=== PATIENT | male | born 1985 | race Two or more races ===

== ENCOUNTER 2019-07-02 14:03 | Inpatient (IN) | payer OTHER ==
[2019-07-02 18:19] VITALS: BMI 29.0
--- NOTE | 2019-07-02 19:36 | HP ---
CIWA Score - Admission Criteria OASAS Guidelines: Admission for Medically Managed Detox: Requires at least one of the followin. CIWA greater than 12 2. Seizures within the past 24 hours 3. Delirium tremens within the past 24 hours 4. Hallucinations within the past 24 hours 5. Acute intervention needed for co occurring medical disorder 6. Acute intervention needed for co occurring psychiatric disorder 7. Severe withdrawal that cannot be handled at a lower level of care (continued vomiting, continued diarrhea, abnormal vital signs) requiring intravenous medication and/or fluids 8. Admission ROS S - HPI Chief Complaint: here for rehab- recommended here by legal b/c of illicits in urine Allergies/Adverse Reactions: Allergies Allergy/AdvReac Type Severity Reaction Status Date / Time No Known Allergies Allergy Verified 07/02/19 17:58 History of Present Illness: 34yo with no medical problems, was using illicit percocets for pain- has legal issues regarding this. Using ecstasy last week- caught by probation on utox- sent here for rehab. Pt is getting Natrexone from [facility] for OUD. no medical problems, no MH problems Utox- neg DUR/ISTOP- no controlled substances - Ebola screening Have you traveled outside of the country in the last 21 days: No (N) Have you had contact with anyone from an Ebola affected area: No Do you have a fever: No - Review of Systems Constitutional: No Symptoms Reported EENT: reports: No Symptoms Reported Respiratory: reports: No Symptoms reported Cardiac: reports: No Symptoms Reported GI: reports: No Symptoms Reported : reports: No Symptoms Reported Musculoskeletal: reports: No Symptoms Reported Integumentary: reports: No Symptoms Reported Neuro: reports: No Symptoms reported Endocrine: reports: No Symptoms Reported Hematology: reports: No Symptoms Reported Psychiatric: reports: No Sypmtoms Reported Other Systems: Reviewed and Negative Patient History - Patient Medical History Hx Asthma: No Hx Cancer: No Hx Congestive Heart Failure: No Hx Hypertension: No Hx Hypercholesterolemia: No Hx Pacemaker: No HX Cerebrovascular Accident: No Hx Seizures: No Hx Diabetes: No Hx Gastrointestinal Disorders: No Hx Liver Disease: No Hx Genitourinary Disorders: No Hx Sexually Transmitted Disorders: No Hx Renal Disease (ESRD): No Hx Thyroid Disease: No Hx Human Immunodeficiency Virus (HIV): No Hx Hepatitis C: No Hx Depression: Yes (never meds, never psych) Hx Suicide Attempt: Yes (2017 - not hospitalized, tried to cut wrist ) - Patient Surgical History Past Surgical History: No - Smoking Cessation Smoking history: Current every day smoker Have you smoked in the past 12 months: Yes Aproximately how many cigarettes per day: 20 Hx Chewing Tobacco Use: Yes Initiated information on smoking cessation: Yes 'Breaking Loose' booklet given: 07/02/19 - Substance & Tx. History Substance Use Type: Opiates Hx Substance Use Treatment: Yes - Substances abused Oxycontin Substance route: Oral Frequency: Daily Amount used: 3-5 pills/day Age of first use: 29 Date of last use: 04/13/19 Family Disease History - Family Disease History Family Disease History: Diabetes: Mother (, liver problems (non etoh)), Other: Father (living, no contact), Mother, Son (age 10), Daughter (age 13) Admission Physical Exam BHS - Vital Signs Vital Signs: Vital Signs - 24 hr 07/02/19 07/02/19 18:13 18:52 Temperature 97.1 F L 97.1 F L Pulse Rate 101 H 101 H Respiratory 16 16 Rate Blood Pressure 144/89 144/89 - Physical General Appearance: Yes: Within Normal Limits HEENTM: Yes: Within Normal Limits Respiratory: Yes: Within Normal Limits Neck: Yes: Within Normal Limits Cardiology: Yes: Within Normal Limits Abdominal: Yes: Within Normal Limits Genitourinary: Yes: Within Normal Limits Back: Yes: Within Normal Limits Musculoskeletal: Yes: Within Normal Limits Extremities: Yes: Within Normal Limits Neurological: Yes: Within Normal Limits Integumentary: Yes: Within Normal Limits Lymphatic: Yes: Within Normal Limits - Diagnostic (1) Ecstasy abuse Current Visit: Yes Status: Acute (2) Nicotine dependence Current Visit: No Status: Acute Qualifiers: Nicotine product type: cigarettes Substance use status: uncomplicated Qualified Code(s): F17.210 - Nicotine dependence, cigarettes, uncomplicated Breathalyzer - Breathalyzer Breathalyzer: 0 Urine Drug Screen - Test Device Lot number: [id number] Expiration date: 03/29/21 - Control Is test valid?: Yes - Results Drug screen NEGATIVE: Yes Inpatient Rehab Admission - Rehab Decision to Admit Inpatient rehab admission?: Yes - Initial Determination Are CD services needed?: Yes Free of communicable disease: Yes Not in need of hospitalization: Yes - Rehab Admission Criteria Previous failed treatment: Yes Poor recovery environment: Yes Comorbidities: Yes Lacks judgement: Yes Patient is meeting Inpatient Rehab admission criteria:: Yes
[2019-07-02] MEDS ORDERED: MAGNESIUM HYDROX 2400MG/30ML ORAL SUSPENSION 30 ML CUP PO PRN (19:41)
[2019-07-02] MEDS ORDERED: guaiFENesin 200 MG/10 ML 10 ML UNIT-DOSE CUPS PO PRN (19:41)
[2019-07-02] MEDS ORDERED: ACETAMINOPHEN 325 MG TABLET (FP) PO PRN (19:41)
[2019-07-02] MEDS ORDERED: MAGNESIUM CITRATE 300 ML BOTTLE PO PRN (19:41)
[2019-07-02] MEDS ORDERED: IBUPROFEN 400 MG TABLET (FP) PO PRN (19:41)
[2019-07-02] MEDS ORDERED: MAG HYDROX/AL HYDROX/SIMETH 30 ML UNIT-DOSE CUP PO PRN (19:41)
[2019-07-02] MEDS ORDERED: MENTHOL/PHENOL 1 EACH UD MM PRN (19:41)
[2019-07-02] MEDS ORDERED: LOPERAMIDE HCL 2 MG CAPSULE PO PRN (19:41)
[2019-07-02] MEDS ORDERED: hydrOXYzine PAMOATE 25 MG CAPSULE (FP) PO PRN (19:41)
[2019-07-02] MEDS ORDERED: P-EPHED 60MG/TRIPROLIDI 2.5MG TABLET PO PRN (19:41)
[2019-07-02] MEDS: MELATONIN 5 MG TABLETS PO PRN (21:30)
[2019-07-02] MEDS: THIAMINE HCL 100 MG TABLET (FP) PO SCH (21:30)
[2019-07-03] MEDS: NICOTINE 21 MG/24 HOURS TOPICAL PATCH TD SCH (10:49)
[2019-07-03] MEDS: PRENATAL VITAMINS W/ FOLIC ACID TABLET (FP) PO SCH (10:49)
[2019-07-03 15:00] LABS: HEMOGLOBIN 14.5 GM/dL (11.7-16.9); MCH 28.2 pg (25.7-33.7); MCHC 32.8 g/dl (32.0-35.9); MEAN CELL VOLUME 85.9 fl (80-96); MEAN PLT VOLUME 9.3 fl (7.5-11.1); PLATELET COUNT 240 K/MM3 (134-434); RBC 5.12 M/mm3 (4.00-5.60); RDW 12.6 % (11.9-15.9); WHITE BLOOD COUNT 9.1 K/mm3 (4.0-10.0)
[2019-07-03 15:17] LABS: ALBUMIN 3.6 g/dl (3.4-5.0); BILIRUBIN,TOTAL 0.3 mg/dL (0.2-1); BLOOD UREA NITROGEN 8.6 mg/dL (7-18); CREATININE 0.9 mg/dL (0.55-1.3); POTASSIUM 4.1 mmol/L (3.5-5.1); TOT PROT 6.7 g/dl (6.4-8.2)
[2019-07-03 17:23] LABS: EPI CELLS 0.1 /HPF (0-5/HPF); HYALINE CASTS 12 /lpf (0-8); PH,URINE 5.5 (5.0-8.0); URINE APPEARANCE Error; URINE BACTERIA >9000 /hpf (NEGATIVE); URINE BILIRUBIN NEGATIVE (NEGATIVE); URINE COLOR YELLOW; URINE GLUCOSE (UA) NEGATIVE (NEGATIVE); URINE KETONE NEGATIVE (NEGATIVE); URINE LEUK ESTERASE 1+ (NEGATIVE); URINE NITRITE POSITIVE (NEGATIVE); URINE PROTEIN NEGATIVE (NEGATIVE); URINE RBC 1 /hpf (0-4); URINE UROBILINOGEN 0.2 mg/dL (0.2-1.0); URINE WBC 47 /hpf (0-5)
[2019-07-03] MEDS: THIAMINE HCL 100 MG TABLET (FP) PO SCH (21:38)
[2019-07-04] MEDS: PRENATAL VITAMINS W/ FOLIC ACID TABLET (FP) PO SCH (10:50)
[2019-07-04] MEDS: NICOTINE 21 MG/24 HOURS TOPICAL PATCH TD SCH (10:50)
[2019-07-04] MEDS: MELATONIN 5 MG TABLETS PO PRN (21:37)
[2019-07-04] MEDS: THIAMINE HCL 100 MG TABLET (FP) PO SCH (21:37)
[2019-07-05] MEDS: PRENATAL VITAMINS W/ FOLIC ACID TABLET (FP) PO SCH (10:00)
[2019-07-05] MEDS: NICOTINE 21 MG/24 HOURS TOPICAL PATCH TD SCH (10:00)
--- NOTE | 2019-07-05 10:34 | PN ---
[facility] Progress Note Note: Vital Signs Temperature 97.7 F 07/05/19 07:20 Pulse Rate 76 07/05/19 07:20 Respiratory Rate 18 07/05/19 07:20 Blood Pressure 127/80 07/05/19 07:20 O2 Sat by Pulse Oximetry (%) Laboratory Last Values WBC 9.1 K/mm3 (4.0-10.0) 07/03/19 08:40 RBC 5.12 M/mm3 (4.00-5.60) 07/03/19 08:40 Hgb 14.5 GM/dL (11.7-16.9) 07/03/19 08:40 Hct 44.0 % (35.4-49) 07/03/19 08:40 MCV 85.9 fl (80-96) 07/03/19 08:40 MCH 28.2 pg (25.7-33.7) 07/03/19 08:40 MCHC 32.8 g/dl (32.0-35.9) 07/03/19 08:40 RDW 12.6 % (11.9-15.9) 07/03/19 08:40 Plt Count 240 K/MM3 (134-434) 07/03/19 08:40 MPV 9.3 fl (7.5-11.1) 07/03/19 08:40 Sodium 143 mmol/L (136-145) 07/03/19 08:40 Potassium 4.1 mmol/L (3.5-5.1) 07/03/19 08:40 Chloride 108 mmol/L (98-107) H 07/03/19 08:40 Carbon Dioxide 29 mmol/L (21-32) 07/03/19 08:40 Anion Gap 6 MMOL/L (8-16) L 07/03/19 08:40 BUN 8.6 mg/dL (7-18) 07/03/19 08:40 Creatinine 0.9 mg/dL (0.55-1.3) 07/03/19 08:40 Est GFR (CKD-EPI)AfAm 127.80 07/03/19 08:40 Est GFR (CKD-EPI)NonAf 110.27 07/03/19 08:40 Random Glucose 96 mg/dL (74-106) 07/03/19 08:40 Calcium 9.0 mg/dL (8.5-10.1) 07/03/19 08:40 Total Bilirubin 0.3 mg/dL (0.2-1) 07/03/19 08:40 AST 13 U/L (15-37) L 07/03/19 08:40 ALT 22 U/L (13-61) 07/03/19 08:40 Alkaline Phosphatase 80 U/L (45-117) 07/03/19 08:40 Total Protein 6.7 g/dl (6.4-8.2) 07/03/19 08:40 Albumin 3.6 g/dl (3.4-5.0) 07/03/19 08:40 Urine Color Yellow 07/03/19 14:15 Urine Appearance Error 07/03/19 14:15 Urine pH 5.5 (5.0-8.0) 07/03/19 14:15 Ur Specific [place] 1.015 (1.010-1.035) 07/03/19 14:15 Urine Protein Negative (NEGATIVE) 07/03/19 14:15 Urine Glucose (UA) Negative (NEGATIVE) 07/03/19 14:15 Urine Ketones Negative (NEGATIVE) 07/03/19 14:15 Urine Blood Negative (NEGATIVE) 07/03/19 14:15 Urine Nitrite Positive (NEGATIVE) H 07/03/19 14:15 Urine Bilirubin Negative (NEGATIVE) 07/03/19 14:15 Urine Urobilinogen 0.2 mg/dL (0.2-1.0) 07/03/19 14:15 Ur Leukocyte Esterase 1+ (NEGATIVE) H 07/03/19 14:15 Urine WBC (Auto) 47 /hpf (0-5) 07/03/19 14:15 Urine RBC (Auto) 1 /hpf (0-4) 07/03/19 14:15 Urine Casts (Auto) 12 /lpf (0-8) 07/03/19 14:15 U Epithel Cells (Auto) 0.1 /HPF (0-5/HPF) 07/03/19 14:15 Urine Bacteria (Auto) >9000 /hpf (NEGATIVE) 07/03/19 14:15 RPR Titer Nonreactive (NONREACTIVE) 07/03/19 08:40 labs reviewed u/c ordered continue to monitor
[2019-07-05] MEDS ORDERED: COLLOIDAL OATMEAL 1 BAR EACH TP PRN (11:10)
--- NOTE | 2019-07-05 11:14 | CONSULT ---
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 This is patient's first admission to rehab at [facility]. Patient admitted to for ecstasty dependence. States he is mandated by court to attend rehab. Substance Abuse History: Smoking Cessation. Smoking history: Current every day smoker. Have you smoked in the past 12 months: Yes. Aproximately how many cigarettes per day: 20. Hx Chewing Tobacco Use: Yes. Initiated information on smoking cessation: Yes. 'Breaking Loose' booklet given: 07/02/19. - Substance & Tx. History. Substance Use Type: Opiates. Hx Substance Use Treatment: Yes. - Substances abused. Oxycontin. Substance route: Oral. Frequency: Daily. Amount used: 3-5 pills/day. Age of first use: 29. Date of last use: 04/13/19 Medical History: denies. Psychiatric History: Patient denies h/o psychiatric hospitalization, outpatient care, and suicide attempt. At present he reports stable mood. Physical/Sexual Abuse/Trauma History: denies. Additional Comment: Patient receives Vivitrol 380mg IM monthly at the [facility]. Mental Status Exam - Mental Status Exam Alert and Oriented to: Time, Place, Person Cognitive Function: Good Patient Appearance: Well Groomed Mood: Euthymic Affect: Mood Congruent Patient Behavior: Cooperative Speech Pattern: Appropriate Voice Loudness: Normal Thought Process: Goal Oriented Thought Disorder: Not Present Hallucinations: Denies Suicidal Ideation: Denies Homicidal Ideation: Denies Insight/Judgement: Poor Sleep: Fair Appetite: Fair Muscle strength/Tone: Normal Gait/Station: Normal Psychiatric Findings - Problem List ([place] 1, 2,3) (1) Ecstasy abuse Current Visit: Yes Status: Acute (2) Nicotine dependence Current Visit: Yes Status: Chronic Qualifiers: Nicotine product type: cigarettes Substance use status: uncomplicated Qualified Code(s): F17.210 - Nicotine dependence, cigarettes, uncomplicated - Initial Treatment Plan Initial Treatment Plan: Psychoeducation provided. Rehab in progress. Observation.
[2019-07-05] MEDS: VITAMINS A AND D TOPICAL OINTMENT 60 GM TUBE TP SCH (21:54)
[2019-07-05] MEDS: NICOTINE POLACRILEX 2 MG GUM BUC PRN (21:55)
[2019-07-05] MEDS: TOLNAFTATE 1% CREAM 15 GM TUBE TP SCH (21:56)
[2019-07-05] MEDS: THIAMINE HCL 100 MG TABLET (FP) PO SCH (21:57)
[2019-07-05] MEDS: MELATONIN 5 MG TABLETS PO PRN (21:58)
[2019-07-06] MEDS: PRENATAL VITAMINS W/ FOLIC ACID TABLET (FP) PO SCH (10:22)
[2019-07-06] MEDS: NICOTINE 21 MG/24 HOURS TOPICAL PATCH TD SCH (10:22)
[2019-07-06] MEDS: TOLNAFTATE 1% CREAM 15 GM TUBE TP SCH ×2 (10:23→21:46)
[2019-07-06] MEDS: VITAMINS A AND D TOPICAL OINTMENT 60 GM TUBE TP SCH ×2 (10:23→21:46)
[2019-07-06] MEDS: NICOTINE POLACRILEX 2 MG GUM BUC PRN ×5 (10:24→21:46)
[2019-07-06] MEDS: MELATONIN 5 MG TABLETS PO PRN (21:46)
[2019-07-06] MEDS: THIAMINE HCL 100 MG TABLET (FP) PO SCH (21:46)
[2019-07-07] MEDS: NICOTINE POLACRILEX 2 MG GUM BUC PRN ×3 (06:18→21:43)
[2019-07-07] MEDS: NICOTINE 21 MG/24 HOURS TOPICAL PATCH TD SCH (10:32)
[2019-07-07] MEDS: PRENATAL VITAMINS W/ FOLIC ACID TABLET (FP) PO SCH (10:32)
[2019-07-07] MEDS: TOLNAFTATE 1% CREAM 15 GM TUBE TP SCH ×2 (10:34→21:43)
[2019-07-07] MEDS: VITAMINS A AND D TOPICAL OINTMENT 60 GM TUBE TP SCH ×2 (10:34→21:43)
[2019-07-07] MEDS: THIAMINE HCL 100 MG TABLET (FP) PO SCH (21:42)
[2019-07-07] MEDS: MELATONIN 5 MG TABLETS PO PRN (21:43)
--- NOTE | 2019-07-08 00:16 | PN ---
[facility] Progress Note Note: Based on urine results from 07/03/19, a urine culture was ordered, Urine on results Laboratory Last Values WBC 9.1 K/mm3 (4.0-10.0) 07/03/19 08:40 Total Bilirubin 0.3 mg/dL (0.2-1) 07/03/19 08:40 AST 13 U/L (15-37) L 07/03/19 08:40 ALT 22 U/L (13-61) 07/03/19 08:40 Alkaline Phosphatase 80 U/L (45-117) 07/03/19 08:40 Total Protein 6.7 g/dl (6.4-8.2) 07/03/19 08:40 Albumin 3.6 g/dl (3.4-5.0) 07/03/19 08:40 Urine Color Yellow 07/03/19 14:15 Urine Appearance Error 07/03/19 14:15 Urine pH 5.5 (5.0-8.0) 07/03/19 14:15 Ur Specific [place] 1.015 (1.010-1.035) 07/03/19 14:15 Urine Protein Negative (NEGATIVE) 07/03/19 14:15 Urine Glucose (UA) Negative (NEGATIVE) 07/03/19 14:15 Urine Ketones Negative (NEGATIVE) 07/03/19 14:15 Urine Blood Negative (NEGATIVE) 07/03/19 14:15 Urine Nitrite Positive (NEGATIVE) H 07/03/19 14:15 Urine Bilirubin Negative (NEGATIVE) 07/03/19 14:15 Urine Urobilinogen 0.2 mg/dL (0.2-1.0) 07/03/19 14:15 Ur Leukocyte Esterase 1+ (NEGATIVE) H 07/03/19 14:15 Urine WBC (Auto) 47 /hpf (0-5) 07/03/19 14:15 Urine RBC (Auto) 1 /hpf (0-4) 07/03/19 14:15 Urine Casts (Auto) 12 /lpf (0-8) 07/03/19 14:15 U Epithel Cells (Auto) 0.1 /HPF (0-5/HPF) 07/03/19 14:15 Urine Bacteria (Auto) >9000 /hpf (NEGATIVE) 07/03/19 14:15 RPR Titer Nonreactive (NONREACTIVE) 07/03/19 08:40 Preliminary urine culture reviewed. Microbiology 07/05/19 13:20 Urine - Urine Clean Catch Urine Culture - Preliminary Lactose Fermenting Neg Bacilli Patient denies burning or pain upon urination. NKDA. LFT's wnl. Plan: EKG ordered - to check for QTc interval. Cipro 250 mg PO Q12H x 3 days. Patient encouraged to increase water intake.
[2019-07-08] MEDS ORDERED: CIPROFLOXACIN 250 MG TABLET (RESTRICTED TO ID) PO SCH (10:00)
[2019-07-08] MEDS: PRENATAL VITAMINS W/ FOLIC ACID TABLET (FP) PO SCH (10:55)
[2019-07-08] MEDS: NICOTINE 21 MG/24 HOURS TOPICAL PATCH TD SCH (10:55)
[2019-07-08] MEDS: TOLNAFTATE 1% CREAM 15 GM TUBE TP SCH ×2 (10:56→21:43)
[2019-07-08] MEDS: VITAMINS A AND D TOPICAL OINTMENT 60 GM TUBE TP SCH ×2 (10:57→21:43)
[2019-07-08] MEDS: NICOTINE POLACRILEX 2 MG GUM BUC PRN ×4 (10:58→21:43)
--- NOTE | 2019-07-08 11:34 | EKG ---
Test Reason : Blood Pressure : / mmHG Vent. Rate : 084 BPM Atrial Rate : 084 BPM P-R Int : 120 ms QRS Dur : 104 ms QT Int : 360 ms P-R-T Axes : 072 071 012 degrees QTc Int : 425 ms NORMAL SINUS RHYTHM MODERATE VOLTAGE CRITERIA FOR LVH, MAY BE NORMAL VARIANT NONSPECIFIC ST AND T WAVE ABNORMALITY ABNORMAL ECG NO PREVIOUS ECGS AVAILABLE Confirmed by LEOPOLDO WEBSTER MD ([id number]) on 07/08/2019 11:33:35 AM Referred By: Stacey MOREL Confirmed By:LEOPOLDO WEBSTER MD
[2019-07-08] MEDS: THIAMINE HCL 100 MG TABLET (FP) PO SCH (21:42)
[2019-07-08] MEDS: MELATONIN 5 MG TABLETS PO PRN (21:42)
[2019-07-09] MEDS: NICOTINE POLACRILEX 2 MG GUM BUC PRN ×3 (06:52→15:55)
[2019-07-09] MEDS: NICOTINE 21 MG/24 HOURS TOPICAL PATCH TD SCH (10:29)
[2019-07-09] MEDS: PRENATAL VITAMINS W/ FOLIC ACID TABLET (FP) PO SCH (10:29)
[2019-07-09] MEDS: TOLNAFTATE 1% CREAM 15 GM TUBE TP SCH ×2 (10:30→21:59)
[2019-07-09] MEDS: VITAMINS A AND D TOPICAL OINTMENT 60 GM TUBE TP SCH ×2 (10:30→21:59)
[2019-07-09] MEDS: MELATONIN 5 MG TABLETS PO PRN (22:00)
[2019-07-09] MEDS: THIAMINE HCL 100 MG TABLET (FP) PO SCH (22:00)
[2019-07-10] MEDS: PRENATAL VITAMINS W/ FOLIC ACID TABLET (FP) PO SCH (10:40)
[2019-07-10] MEDS: NICOTINE 21 MG/24 HOURS TOPICAL PATCH TD SCH (10:40)
[2019-07-10] MEDS: VITAMINS A AND D TOPICAL OINTMENT 60 GM TUBE TP SCH ×2 (10:42→21:46)
[2019-07-10] MEDS: TOLNAFTATE 1% CREAM 15 GM TUBE TP SCH ×2 (10:42→21:46)
--- NOTE | 2019-07-10 14:44 | PN ---
[facility] Progress Note Note: This journalists and other writers got a message from nurse Blaire Huynh regarding Mr. Schultz and Vivitrol treatment at [facility]. See below for nurse's note of 07/04/19 : JUNIOR NELLY Male : 1985 [facility]# [id number] 07/04/19 16:31 - Nursing Note by Blaire Huynh Acct Num: [id number] : 1985 Patient Age: 34 Group Insurance Special Agent received a call from ANSELMO Gibbs of [facility], stating that "Mr. Schultz is due for his next dose of Vivitrol 380mg IM, but he may not want to take it". Group Insurance Special Agent ANSELMO Huynh met with pt to discuss same. Pt stated that "I am feeling fine now and don't think that I need it, but if I do, I will let you know. I took it for 4 months after taking pills and it really did help me but I am ok now". MOLDING LINE OPERATOR Fede Ruiz and Counselor Zari Decker notified of same. Psych consult reportedly requested by drug court, as per counselor Zari Decker. TARIQ Ruiz notified and order given for consult in the am. Staff will f/u. Initialized on 07/04/19 16:31 - END OF NOTE 07/10/19: Pt was seen today and offered pt opportunity to continue vivitrol treatment. Pt declined stating "I think I'm good now. I don't need to continue, but that really helped. Vivitrol actually helped when i was taking it". Pt reported a hx of oxycontin use which he states was due to back pain from work related back injury years ago. Reports last use of oxy was 2 months ago while on vivitrol and experienced precipitated withdrawal sx of aches,severe sweatings. Pt states he plans to continue with Shinto attendance/Kingdom rodriguez meetings and Anonymous meetings which helped him in the past and not go back to vivitrol treatment at this time. Pt also states that he will be going back to [facility] after discharge from Rehab. Pt is alert o x 3. Denies any form of discomfort at this time. Additionally, pt's Ua results and current treatment was reviewed. Laboratory Last Values WBC 9.1 K/mm3 (4.0-10.0) 07/03/19 08:40 RBC 5.12 M/mm3 (4.00-5.60) 07/03/19 08:40 Hgb 14.5 GM/dL (11.7-16.9) 07/03/19 08:40 Hct 44.0 % (35.4-49) 07/03/19 08:40 MCV 85.9 fl (80-96) 07/03/19 08:40 MCH 28.2 pg (25.7-33.7) 07/03/19 08:40 MCHC 32.8 g/dl (32.0-35.9) 07/03/19 08:40 RDW 12.6 % (11.9-15.9) 07/03/19 08:40 Plt Count 240 K/MM3 (134-434) 07/03/19 08:40 MPV 9.3 fl (7.5-11.1) 07/03/19 08:40 Sodium 143 mmol/L (136-145) 07/03/19 08:40 Potassium 4.1 mmol/L (3.5-5.1) 07/03/19 08:40 Chloride 108 mmol/L (98-107) H 07/03/19 08:40 Carbon Dioxide 29 mmol/L (21-32) 07/03/19 08:40 Anion Gap 6 MMOL/L (8-16) L 07/03/19 08:40 BUN 8.6 mg/dL (7-18) 07/03/19 08:40 Creatinine 0.9 mg/dL (0.55-1.3) 07/03/19 08:40 Est GFR (CKD-EPI)AfAm 127.80 07/03/19 08:40 Est GFR (CKD-EPI)NonAf 110.27 07/03/19 08:40 Random Glucose 96 mg/dL (74-106) 07/03/19 08:40 Calcium 9.0 mg/dL (8.5-10.1) 07/03/19 08:40 Total Bilirubin 0.3 mg/dL (0.2-1) 07/03/19 08:40 AST 13 U/L (15-37) L 07/03/19 08:40 ALT 22 U/L (13-61) 07/03/19 08:40 Alkaline Phosphatase 80 U/L (45-117) 07/03/19 08:40 Total Protein 6.7 g/dl (6.4-8.2) 07/03/19 08:40 Albumin 3.6 g/dl (3.4-5.0) 07/03/19 08:40 Urine Color Yellow 07/03/19 14:15 Urine Appearance Error 07/03/19 14:15 Urine pH 5.5 (5.0-8.0) 07/03/19 14:15 Ur Specific [place] 1.015 (1.010-1.035) 07/03/19 14:15 Urine Protein Negative (NEGATIVE) 07/03/19 14:15 Urine Glucose (UA) Negative (NEGATIVE) 07/03/19 14:15 Urine Ketones Negative (NEGATIVE) 07/03/19 14:15 Urine Blood Negative (NEGATIVE) 07/03/19 14:15 Urine Nitrite Positive (NEGATIVE) H 07/03/19 14:15 Urine Bilirubin Negative (NEGATIVE) 07/03/19 14:15 Urine Urobilinogen 0.2 mg/dL (0.2-1.0) 07/03/19 14:15 Ur Leukocyte Esterase 1+ (NEGATIVE) H 07/03/19 14:15 Urine WBC (Auto) 47 /hpf (0-5) 07/03/19 14:15 Urine RBC (Auto) 1 /hpf (0-4) 07/03/19 14:15 Urine Casts (Auto) 12 /lpf (0-8) 07/03/19 14:15 U Epithel Cells (Auto) 0.1 /HPF (0-5/HPF) 07/03/19 14:15 Urine Bacteria (Auto) >9000 /hpf (NEGATIVE) 07/03/19 14:15 RPR Titer Nonreactive (NONREACTIVE) 07/03/19 08:40 TB (QFT) Incubation (.) 07/04/19 08:45 TB Test (QFT) Nil 0.03 IU/mL (.) 07/04/19 08:45 TB Test (QFT) Mitogen >10.00 IU/mL (.) 07/04/19 08:45 TB Test (QFT) Antigen 0.04 IU/mL (.) 07/04/19 08:45 TB Test (QFT) Negative (Negative) 07/04/19 08:45 TB Positive Criteria (.) 07/04/19 08:45 Microbiology On 07/05/19 13:20 Urine - Urine Clean Catch Urine Culture - Final Klebsiella Pneumoniae Pt was already started on oredered Levaquin 250 mg po daily x 3 days since . Pt denies any urinary symptoms at this time today. plan:D/w pt will Order for repeat UA today. Inform staff in rehab if changes his mind on restarting vivitrol. follow up with [facility] after discharge if changes his mind on vivitrol treatment. Pt is agreeable to this poc. Pt was spoken to today with Nurse Blaire Huynh.
[2019-07-10 16:35] LABS: PH,URINE 7.5 (5.0-8.0); URINE APPEARANCE CLEAR; URINE BILIRUBIN NEGATIVE (NEGATIVE); URINE COLOR YELLOW; URINE GLUCOSE (UA) NEGATIVE (NEGATIVE); URINE KETONE NEGATIVE (NEGATIVE); URINE LEUK ESTERASE NEGATIVE (NEGATIVE); URINE NITRITE NEGATIVE (NEGATIVE); URINE PROTEIN NEGATIVE (NEGATIVE); URINE UROBILINOGEN 0.2 mg/dL (0.2-1.0)
[2019-07-10] MEDS: MELATONIN 5 MG TABLETS PO PRN (21:46)
[2019-07-10] MEDS: THIAMINE HCL 100 MG TABLET (FP) PO SCH (21:46)
[2019-07-11 07:26] VITALS: BP 126/71; PULSE 74; TEMP 95.3
[2019-07-11] MEDS: NICOTINE 21 MG/24 HOURS TOPICAL PATCH TD SCH (09:49)
[2019-07-11] MEDS: PRENATAL VITAMINS W/ FOLIC ACID TABLET (FP) PO SCH (09:49)
[2019-07-11] MEDS: VITAMINS A AND D TOPICAL OINTMENT 60 GM TUBE TP SCH (09:50)
[2019-07-11] MEDS: TOLNAFTATE 1% CREAM 15 GM TUBE TP SCH (09:50)
--- NOTE | 2019-07-11 09:57 | DS ---
[facility] Rehab Discharge Summary - [facility] Rehab Discharge Summary Admission Date: 07/02/19 Discharge Date: 07/11/19 - History Present History: Opioid dependence Additional Comments: Pt is a 34 y/o male admitted to rehab for opioid dependence. Pt was referred from [facility] and will be following up for aftercare there after discharge today. Pertinent Past History: Denies - Discharge Physical Exam Vital Signs: Vital Signs Temperature 95.3 F L 07/11/19 07:24 Pulse Rate 74 07/11/19 07:24 Respiratory Rate 18 07/11/19 07:24 Blood Pressure 126/71 07/11/19 07:24 O2 Sat by Pulse Oximetry (%) Heent:Normocephalic,eomi,florencia cardiac:s1 s2, rrr Lungs:cta,lanre. Abdomen:soft,+bs,nt,nd Extremities/Skin:No edema, cyanosis;Full ROM;skin intact. Pertinent Admission Physical Exam Findings: Abnormal admission UA. Dx;UTI with treatment with Levaquin completed. repeat UA result wnl. Laboratory Tests 07/03/19 07/03/19 07/03/19 08:40 08:40 08:40 WBC 9.1 RBC 5.12 Hgb 14.5 Hct 44.0 MCV 85.9 MCH 28.2 MCHC 32.8 RDW 12.6 Plt Count 240 MPV 9.3 Sodium 143 Potassium 4.1 Chloride 108 H Carbon Dioxide 29 Anion Gap 6 L BUN 8.6 Creatinine 0.9 Est GFR (CKD-EPI)AfAm 127.80 Est GFR (CKD-EPI)NonAf 110.27 Random Glucose 96 Calcium 9.0 Total Bilirubin 0.3 AST 13 L ALT 22 Alkaline Phosphatase 80 Total Protein 6.7 Albumin 3.6 Urine Color Urine Appearance Urine pH Ur Specific [place] Urine Protein Urine Glucose (UA) Urine Ketones Urine Blood Urine Nitrite Urine Bilirubin Urine Urobilinogen Ur Leukocyte Esterase Urine WBC (Auto) Urine RBC (Auto) Urine Casts (Auto) U Epithel Cells (Auto) Urine Bacteria (Auto) RPR Titer Nonreactive TB (QFT) Incubation TB Test (QFT) Nil TB Test (QFT) Mitogen TB Test (QFT) Antigen TB Test (QFT) TB Positive Criteria 07/03/19 07/04/19 07/10/19 14:15 08:45 15:00 WBC RBC Hgb Hct MCV MCH MCHC RDW Plt Count MPV Sodium Potassium Chloride Carbon Dioxide Anion Gap BUN Creatinine Est GFR (CKD-EPI)AfAm Est GFR (CKD-EPI)NonAf Random Glucose Calcium Total Bilirubin AST ALT Alkaline Phosphatase Total Protein Albumin Urine Color Yellow Yellow Urine Appearance Error Clear Urine pH 5.5 7.5 D Ur Specific [place] 1.015 1.028 Urine Protein Negative Negative Urine Glucose (UA) Negative Negative Urine Ketones Negative Negative Urine Blood Negative Negative Urine Nitrite Positive H Negative Urine Bilirubin Negative Negative Urine Urobilinogen 0.2 0.2 Ur Leukocyte Esterase 1+ H Negative Urine WBC (Auto) 47 Urine RBC (Auto) 1 Urine Casts (Auto) 12 U Epithel Cells (Auto) 0.1 Urine Bacteria (Auto) >9000 RPR Titer TB (QFT) Incubation TB Test (QFT) Nil 0.03 TB Test (QFT) Mitogen >10.00 TB Test (QFT) Antigen 0.04 TB Test (QFT) Negative TB Positive Criteria - Treatment Discharge Condition: Discharge condition good Hospital Course: Rehabilitated safely and responded well. Accepted CD [facility]care [facility] - Medication Discharge Medications: Ambulatory Orders Naltrexone Microspheres [Vivitrol] 380 mg IM MONTHLY #1 disp.syrin 07/02/19 - Medication-Assisted Treatment (MAT) Medication-Assisted Treatment (MAT): No MAT Follow-up Referral: Pt was on vivitrol at [facility] before coming to rehab, Pt declined his due dose while here in rehab. The Nurse, Ms De Santiago at [facility] program is aware. Pt has been instructed to follow up with his program and inform them if he changes his mind to restart vivitrol. - Discharge Instructions Diet, activity, other medical instructions: Diet:Regular diet Activity: OOB, Ad Milka Other medical instructions:Follow up with [facility] on [address] [place] [address] follow up with your primary care provider at [facility] on [place], [place] as needed. - Diagnosis (1) Nicotine dependence Status: Chronic Qualifiers: Nicotine product type: cigarettes Substance use status: uncomplicated Qualified Code(s): F17.210 - Nicotine dependence, cigarettes, uncomplicated (2) Opiate dependence Status: Chronic Qualifiers: Substance use status: uncomplicated Qualified Code(s): F11.20 - Opioid dependence, uncomplicated - Follow-up Referral Minutes to complete discharge: 20 - AMA Did Patient Leave Against Medical Advice: No Additional Comments: Pt was on vivitrol inj. in [facility] but declined to continue with treatment when offered in rehab when next dose was due. Pt has been reminded to inform C Nurse Anyi if he changes his mind to continue vivitrol inj.
== END 2019-07-11 10:50 | disposition home or self-care (01) | DRG 895 ==
LOC: YASAS 14:03 → Y5N 20:12
PROVIDERS: ADMIT Neuromusculoskeletal Medicine & OMM; ATTEND Neuromusculoskeletal Medicine & OMM
PROC: HZ42ZZZ Group Counseling for Substance Abuse Treatment, Cognitive-Behavioral (ICD-10-PCS; principal; 2019-07-02)
DX: F11.20 Opioid dependence, uncomplicated (principal); N39.0 Urinary tract infection, site not specified; F16.10 Hallucinogen abuse, uncomplicated; F17.210 Nicotine dependence, cigarettes, uncomplicated; Z91.5 Personal history of self-harm
CPT/HCPCS: 36415; 80053; 81003; 85027; 86480; 86593; 87086; 87186; 93005; 93010